=== PATIENT | female | born 1990 | race Caucasian/White ===

== ENCOUNTER 2021-12-05 18:53 | Emergency (ER) | payer SELFPAY | END 2021-12-05 19:43 | disposition home or self-care (01) | LOC: ERS 18:53 | DX: F41.9 Anxiety disorder, unspecified (principal); G40.909 Epilepsy, unspecified, not intractable, without status epilepticus; J45.909 Unspecified asthma, uncomplicated; G47.419 Narcolepsy without cataplexy; Z76.0 Encounter for issue of repeat prescription; Z79.899 Other long term (current) drug therapy | CPT/HCPCS: 99281 ==